=== PATIENT | female | born 1980 | race Caucasian/White ===

== ENCOUNTER 2020-03-22 05:20 | Day surgery (SDC) | payer MEDICAID ==
[2020-03-15 15:25] LABS: BASOPHILS % (AUTO) 0.6 % (0-1); EOSINOPHILS # (AUTO) 0.2 X10'3 (0-0.9); EOSINOPHILS % (AUTO) 2.4 % (0-6); LYMPHOCYTES # (AUTO) 2.2 X10'3 (1.1-4.8); MEAN CORPUSCULAR HEMOGLOBIN 29.8 PG (27.0-31.0); MEAN CORPUSCULAR HGB CONC 33.1 g/dL (33.0-36.5); MEAN PLATELET VOLUME 8.9 FL (7.4-10.4); MONOCYTES # (AUTO) 0.4 X10'3 (0-0.9); MONOCYTES % (AUTO) 6.8 % (2-12); NEUTROPHILS # (AUTO) 3.5 X10'3 (1.8-7.7); NEUTROPHILS % (AUTO) 55.2 % (42-75); PRE OP HEMATOCRIT 39.3 % (35.0-45.0); PRE OP PLATELET COUNT 103 X10'3 (140-440); RED BLOOD COUNT 4.37 X10'6 (4.20-5.60)
[2020-03-15 15:38] LABS: ALBUMIN 3.4 G/DL (3.4-5.0); ALBUMIN/GLOBULIN RATIO 1.1 (1.1-1.5); ALKALINE PHOSPHATASE 48 IU/L (46-116); BLOOD UREA NITROGEN 23 MG/DL (7-18); BUN/CREATININE RATIO 13.7 (6.6-38.0); CALCIUM 9.2 MG/DL (8.5-10.1); CHLORIDE 106 MMOL/L (99-107); CREATININE 1.68 MG/DL (0.40-0.90); PRE OP ALT 18 U/L (30-65); PRE OP ANION GAP 4 (8-16); PRE OP AST 11 U/L (10-37); PRE OP BILIRUB, TOTAL 0.3 MG/DL (0.0-1.0); PRE OP GLUCOSE 96 MG/DL (70-104); PRE OP POTASSIUM 4.5 MMOL/L (3.4-5.1); PRE OP SODIUM 138 MMOL/L (135-145); TOTAL CARBON DIOXIDE 27.8 MMOL/L (24-32); TOTAL PROTEIN 6.5 G/DL (6.4-8.2); eGFR 34 ML/MIN
[2020-03-15 15:41] LABS: PRE OP INR 2.6 INR
[~2020-03-22] VITALS: Ht 172.7 cm; Wt 70.8 kg
[2020-03-22] VITALS (19 sets, daily range): BP systolic 96–128; BP diastolic 57–97
[~2020-03-22 05:20] MED LIST: GABA-338 PO; METO100T7 PO; MYCO360T PO; OMEP-84 PO; TACR1CAP24 PO; WARF3TAB56 PO; WARF4TAB69 PO; ringers solution, lacted 1,000 ML IV SCH
[2020-03-22] MEDS ORDERED: cefazolin/dext.iso 2gm/50ml 50 ML IV ONE (05:30)
[2020-03-22] MEDS ORDERED: famotidine 20mg tablet PO ONE (05:30)
[2020-03-22] MEDS ORDERED: DOCUMENT DATE & TIME OF BETA-BLOCKER PO ONE (05:30)
[2020-03-22 06:36] LABS: PRE OP PARTIAL THROMB. TIME 29 SECONDS (22-32)
[2020-03-22] MEDS ORDERED: BUPIVAcaine/PF 2.5 mg/ml (0.25%) 30ml vial ONE (06:38)
[2020-03-22] MEDS ORDERED: LIDOcaine 1% 30ml preserv. free vial ONE (06:38)
[2020-03-22] MEDS ORDERED: BUPIVAcaine/PF 2.5mg/ml (0.25%) 10ml vial ONE (07:02)
[2020-03-22] MEDS ORDERED: BUPIVACAINE liposomal/PF 13.3 MG/ML vial IM ONE (07:02)
[2020-03-22] MEDS ORDERED: fentaNYL/PF 50MCG/1 ML 2ML syringe ONE ×2 (07:08→08:48)
[2020-03-22] MEDS ORDERED: midazolam 2 mg/2 ml injection ONE (07:09)
[2020-03-22] MEDS ORDERED: dexamethasone sod phosphate 4mg/ml inj. ONE (07:09)
[2020-03-22] MEDS ORDERED: ondansetron/PF 4mg/2ml inj ONE (07:09)
[2020-03-22] MEDS ORDERED: LIDOcaine 2% (20mg/ml) 5ml vial ONE (07:09)
[2020-03-22] MEDS ORDERED: propofol inj 20 ML IV ONE (07:09)
[2020-03-22] MEDS ORDERED: rocuronium 10mg/ml inj IV ONE (07:09)
[2020-03-22] MEDS ORDERED: ringers solution, lacted 1,000 ML IV SCH (07:13)
[2020-03-22] MEDS ORDERED: morphine 2 MG/ML inj. syringe IV PRN (07:15)
[2020-03-22] MEDS ORDERED: labetalol 20mg/4ml (5mg/ml) syringe IV PRN (07:15)
[2020-03-22] MEDS ORDERED: hydrALAZINE 20mg/ml inj. IV PRN (07:15)
[2020-03-22] MEDS ORDERED: ondansetron/PF 4mg/2ml inj IV PRN (07:15)
[2020-03-22] MEDS ORDERED: morphine 4 MG/ML inj SYRINge IV PRN (07:15)
[2020-03-22] MEDS ORDERED: fentaNYL/PF 50MCG/1 ML 2ML syringe IV PRN ×2 (07:15)
[2020-03-22] MEDS ORDERED: sevoflurane 250ml liquid IH ONE (07:29)
[2020-03-22] MEDS ORDERED: hydrALAZINE 20mg/ml inj. IV ONE (08:02)
[2020-03-22] MEDS ORDERED: neostigmine methylsulfate 1 MG/ML 10ml vial ONE (08:41)
[2020-03-22] MEDS ORDERED: glycopyrrolate 0.2mg/ml inj ONE (08:41)
[2020-03-22] MEDS ORDERED: albumin (Human) 5% 250ml 250 ML IV ONE (10:02)
[2020-03-22] MEDS ORDERED: morphine 10mg/ml inj. ONE (10:11)
--- NOTE | 2020-03-22 10:26 | NUR ---
Received from OR via , accompanied by Anesthesiologist DR ANDERSON and report given by Anesthesiolgist. AWAKENS TO VOICE. VITALS STABLE. DRESSINGS DI. ETIENNE PAIN. ABD SOFT.
[2020-03-22] MEDS ORDERED: oxyCODONE/APAP 5-325mg tablet PO PRN (11:00)
--- NOTE | 2020-03-22 13:26 | NUR ---
Report called to receiving nurse. Transferred [facility] . Special Issues communicated to receiving nurse. AWAKENS TO VOICE. VITALS STABLE. DRESSINGS DI. ETIENNE PAIN. TO PASS RM [phone] AT THIS TIME.
--- NOTE | 2020-03-22 14:26 | NUR ---
PT AWAKE AND ALERT AND TOLERATING FLUIDS. ABLE TO DRESS SELF, STAND AND AMBULATE. DISCHARGE INSTRUCTIONS GIVEN AND PT VERBALIZED UNDERSTANDING. 20 GAUGE PIV L WRIST DC/D CATH TIP INTACT. DISCHARGE STANDARDS MET. PT TRANSPORTED VIA WHEELCHAIR TO MOTHER IN PRIVATE VEHICLE TO HOME. INSTRUCTIONS REITERATED TO MOTHER WHO ALSO VERBALIZED UNDERSTANDING. PT HELPED INTO VEHICLE WITH MINIMAL ASSIST.
== END 2020-03-22 14:26 | disposition home or self-care (01) ==
LOC: PAS 05:20
PROVIDERS: ATTEND Surgery
DX: K43.0 Incisional hernia with obstruction, without gangrene (principal); R10.815 Periumbilic abdominal tenderness; Z20.828 Contact with and (suspected) exposure to other viral communicable diseases; Z79.899 Other long term (current) drug therapy; Z79.01 Long term (current) use of anticoagulants; Z94.0 Kidney transplant status; E11.9 Type 2 diabetes mellitus without complications; I10 Essential (primary) hypertension; F17.210 Nicotine dependence, cigarettes, uncomplicated
CPT/HCPCS: 36415; 49657; 74018; 74235; 76000; 80053; 82948; 85025; 85610; 85730; 87635; 93005; C1781; C9290; J0360; J1100; J2001; J2250; J2270; J2405; J2704; J2710; J3010; J3490; P9045; S2900; A4215; A4618; J7120

== ENCOUNTER 2021-07-14 22:54 | Emergency (ER) | payer MEDICAID ==
[~2021-07-14] VITALS: Ht 172.7 cm; Wt 71.8 kg
[~2021-07-14 22:54] MED LIST changes: -ringers solution, lacted 1,000 ML IV SCH
[2021-07-14 22:59] VITALS: BP 154/97
[2021-07-15] MEDS ORDERED: HYDROcodone/acetaminophen 5mg/325mg tablet PO ONE (02:20)
[2021-07-15 02:32] LABS: URINE HCG NEGATIVE (NEG)
[2021-07-15 02:37] LABS: CLARITY,URINE SLIGHTLY CLOUDY (Clear); COLOR,URINE YELLOW (Yellow); GLUCOSE, URINE NEGATIVE (Neg); KETONES,URINE NEGATIVE (Neg); LEUKOCYTE ESTERASE ,URINE MODERATE (Neg); NITRITES, URINE POSITIVE (Neg); OCCULT BLOOD,URINE LARGE (Neg); PH,URINE 5.5 (4.8-8.0); PROTEIN,URINE 100 mg/dl (Neg); UROBILINOGEN,URINE 0.2 E.U/dL (0.2-1.0)
[2021-07-15 02:41] LABS: UA COLLECTION TYPE CLN CATCH MIDSTREAM
[2021-07-15 02:42] LABS: BACTERIA,URINE 1+ /HPF (Neg); SQUAMOUS EPITHELIAL CELL,UR FEW /LPF (FEW); WBC CLUMPS,URINE FEW /HPF (NEGATIVE); WBC,URINE 30-50 /HPF (0-4)
[2021-07-15 03:10] LABS: BASOPHILS % (AUTO) 0.3 % (0-1); EOSINOPHILS # (AUTO) 0.3 X10'3 (0-0.9); EOSINOPHILS % (AUTO) 3.4 % (0-6); HEMATOCRIT 41.7 % (35.0-45.0); HEMOGLOBIN 13.7 g/dl (12.0-16.0); LYMPHOCYTES # (AUTO) 1.4 X10'3 (1.1-4.8); LYMPHOCYTES % (AUTO) 13.6 % (21-51); MEAN CORPUSCULAR HEMOGLOBIN 29.4 PG (27.0-31.0); MEAN CORPUSCULAR HGB CONC 32.9 g/dL (33.0-36.5); MEAN CORPUSCULAR VOLUME 89.2 FL (78-98); MEAN PLATELET VOLUME 9.5 FL (7.4-10.4); MONOCYTES # (AUTO) 0.8 X10'3 (0-0.9); MONOCYTES % (AUTO) 7.8 % (2-12); NEUTROPHILS # (AUTO) 7.8 X10'3 (1.8-7.7); NEUTROPHILS % (AUTO) 74.9 % (42-75); PLATELET COUNT 123 X10'3 (140-440); RED BLOOD COUNT 4.68 X10'6 (4.20-5.60); RED CELL DISTRIBUTION WIDTH 15.3 % (11.5-14.5); WHITE BLOOD COUNT 10.3 X10'3 (4.5-11.0)
[2021-07-15 03:17] LABS: ALBUMIN 2.8 G/DL (3.4-5.0); ANION GAP 10 (8-16); BLOOD UREA NITROGEN 28 MG/DL (7-18); BUN/CREATININE RATIO 13.7 (6.6-38.0); CALCIUM 9.3 MG/DL (8.5-10.1); CHLORIDE 104 MMOL/L (99-107); CREATININE 2.05 MG/DL (0.40-0.90); GLUCOSE 123 MG/DL (70-104); SODIUM 137 MMOL/L (135-145); TOTAL CARBON DIOXIDE 23.3 MMOL/L (24-32); eGFR 27 ML/MIN
[2021-07-15] MEDS ORDERED: SULF1TAB49 PO (03:40)
[2021-07-15] MEDS ORDERED: cephalexin 250mg capsule PO ONE (03:40)
[2021-07-15] MEDS ORDERED: sulfamethoxazole/trimethoprim DS (800/160mg) tablet PO ONE (03:40)
[2021-07-15] MEDS ORDERED: CEPH-585 PO (03:40)
== END 2021-07-15 03:53 | disposition home or self-care (01) ==
LOC: ER 22:55
DX: N39.0 Urinary tract infection, site not specified (principal); R10.2 Pelvic and perineal pain; Z98.890 Other specified postprocedural states; Z88.1 Allergy status to other antibiotic agents; Z79.2 Long term (current) use of antibiotics; Z79.899 Other long term (current) drug therapy
CPT/HCPCS: 36415; 80048; 81001; 81025; 85025; 99284